=== PATIENT | female | born 1995 | race Caucasian/White ===

== ENCOUNTER 2020-10-03 20:44 | Emergency (ER) | payer OTHER, SELFPAY ==
[2020-10-03 20:46] VITALS: BP 137/67; PULSE 79; RESP 20; TEMP 36.2; O2SAT 98
--- NOTE | 2020-10-03 21:08 | DI.US.S_ITS ---
PROCEDURE: US PELVIC COMPLETE INDICATIONS: PAIN; HX OVARIAN CYSTS TECHNIQUE: Real-time scanning was performed of the pelvic organs, with image documentation. Additional endovaginal scanning was necessary due to incomplete visualization of the adnexal and endometrial structures by transabdominal scanning. COMPARISON: None. FINDINGS: Transabdominal scanning: Limited scanning through the kidneys shows no hydronephrosis. No pathologic free abdominal or pelvic fluid. Endovaginal scanning: Uterus: Uterus is normal in size at 8.6 x 4.2 x 6.2 cm. The endometrium measures 8.5 mm in combined thickness. Ovaries: Demonstrate a 22 mm simple left ovarian cyst and a 32 mm complex left ovarian cyst. IMPRESSION: 1. Ovarian cysts as described above. 2. No acute process. Dictated by: Sloan Morocho M.D. on 10/03/2020 at 21:59 Approved by: Sloan Morocho M.D. on 10/03/2020 at 22:01
--- NOTE | 2020-10-03 21:08 | ED_ITS ---
HPI - General Adult General Chief complaint: Abdominal Pain Stated complaint: Thinks ovarian cyst ruptured Time Seen by Provider: 10/03/20 20:47 Source: patient Mode of arrival: Ambulatory Limitations: no limitations History of Present Illness HPI narrative: Patient is a 25-year-old female here for evaluation of bilateral adnexal tenderness. She reports that the symptoms started started approximately 30 minutes prior to arrival here in the emergency department. She states she was having sexual intercourse of the time when the pain started. She took some ibuprofen prior to arrival and this has improved his symptoms somewhat. She has had ovarian cysts in the past that she states has been the size of soft falls. She has never had surgery in the past for these. She is not currently on any control. She also describes urinary symptoms to include urinary hesitation. States this is occasional for her. She is not currently having the symptoms. She has not seen any master scheduler or urologist provider for these. She denies any vaginal discharge. No concerns for sexually transmitted diseases. Review of Systems Constitutional Constitutional: Denies fatigue and Denies fever(s) Cardiovascular Cardiovascular: Denies chest pain and Denies dyspnea Respiratory Respiratory: Denies dyspnea Gastrointestinal Gastrointestinal: Reports abdominal pain, Denies nausea and Denies vomiting Genitourinary Genitourinary: Reports urinary hesitancy and Reports urinary urgency Genitourinary: Reports urinary hesitancy, Reports urinary urgency and Denies vaginal discharge Musculoskeletal Musculoskeletal: Denies back pain Integumentary/Breasts Skin/Breast: Denies pruritus and Denies rash Neurologic Neurologic: Denies behavioral changes Psychiatric Psychiatric: Denies behavioral changes Endocrine Endocrine: Denies fatigue Hematologic/Lymphatic Hematologic/Lymphatic: Denies easy bleeding and Denies easy bruising Allergic/Immunologic Allergic/Immunologic: Denies urticaria Patient History Medical History Ovarian cyst Social History lives independently: Yes Exam Initial Vital Signs Initial Vital Signs: Vital Signs Temperature 97.1 F L 10/03/20 20:46 Pulse Rate 79 10/03/20 20:46 Respiratory Rate 20 10/03/20 20:46 Blood Pressure 137/67 10/03/20 20:46 Pulse Oximetry 98 10/03/20 20:46 Const General: cooperative and comfortable Limitations: mental status not altered HENMT Head: normal to inspection and normocephalic Resp Effort & Inspection: normal respiratory effort GI Inspection: non-distended Palpation: soft, No firm and tender (Suprapubic bilateral adnexa) Bimanual Exam- Adnexa, other: tender bilaterally Back/Spine/Pelvis Back: No CVA tenderness Skin Lesions: no lesions Rashes: no rashes Neuro General: patient alert and patient awake Extrem General: capillary refill normal Psych Appearance: grossly normal and well kempt Course Orders Ordered: ED Orders 10/03/20 21:08 US pelvic complete Stat Vital Signs Vital signs: Vital Signs - 8 hr 10/03/20 20:46 10/03/20 22:38 Temperature 97.1 F L 97.6 F Pulse Rate 79 75 Respiratory Rate 20 16 Blood Pressure 137/67 119/76 Pulse Oximetry 98 98 Medical Decision Making Lab Data Lab results reviewed: Yes I reviewed the patient's lab results. Labs: Point of Care Testing Test Results Negative Urine Dip Bedside Urine Glucose Negative Bedside Urine Bilirubin - Negative Bedside Urine Ketone - Negative Urine Specific [place] 1.015 Bedside Urine Occult Blood - Negative Bedside Urine pH 6.5 Bedside Urine Protein - Negative Bedside Urine Urobilinogen - Negative Bedside Urine Nitrite - Negative Bedside Urine Leukocytes - Negative Esterase Point of care testing: Point of Care Testing Test Results Negative Urine Dip Bedside Urine Glucose Negative Bedside Urine Bilirubin - Negative Bedside Urine Ketone - Negative Urine Specific [place] 1.015 Bedside Urine Occult Blood - Negative Bedside Urine pH 6.5 Bedside Urine Protein - Negative Bedside Urine Urobilinogen - Negative Bedside Urine Nitrite - Negative Bedside Urine Leukocytes - Negative Esterase Imaging Data US - MEDICAL REVIEWER: Radiologist's Impression: 3.2 cm right ovarian complex 6 likely representing a hemorrhagic cyst. Follow-up pelvic ultrasound 6 6 weeks may be helpful. Simple left ovarian cyst MDM Narrative Medical decision making narrative: Patient does have bilateral very insistent on ultrasound. Her urine is negative. She is not concerned about sexually transmitted diseases. Cyst most likely causing her discomfort. Discussed with her that she needs to make contact with the primary doctor discuss referral to see master scheduler to discuss both her urinary issues and also her ovarian cyst issues has these seem to be causing her quite a bit of discomfort. We discussed return p recautions and follow-up instructions. She expressed understanding and agreement. Discharge Plan Departure Patient Disposition: Home Clinical Impression: Ovarian cyst Qualifiers: Laterality: bilateral Qualified Code(s): N83.201 - Unspecified ovarian cyst, right side Instructions: DI for Ovarian Cyst Activity Restrictions/Additional Instructions: I do recommend that you contact your primary provider to get a referral to see a party plan salesperson. This would be beneficial for both your urinary symptoms and also your ovarian issues. Return to the emergency department for any new or worsening symptoms
[2020-10-03 22:38] VITALS: BP 119/76; PULSE 75; RESP 16; TEMP 36.4; O2SAT 98
== END 2020-10-03 22:35 | disposition home or self-care (01) ==
PROVIDERS: Emergency Provider Emergency Medicine
DX: N83.201 Unspecified ovarian cyst, right side (principal)
CPT/HCPCS: 76830; 76856; 81003; 81025; 99283